=== PATIENT | male | born 1945 | race Caucasian/White ===

== ENCOUNTER 2018-09-01 13:34 | Emergency (ER) | payer OTHER ==
[2018-09-01 14:35] LABS: HEMATOCRIT 30.1 % (41.0-60); HEMOGLOBIN 9.8 gm/dL (12-16); MEAN CELL VOLUME 74.6 fl (80-99); MEAN CORPUSCULAR HEMOGLOBIN 24.3 pg (27.0-31.0); MEAN CORPUSCULAR HGB CONC 32.5 pg (28.0-36.0); MEAN PLATELET VOLUME 8.9 fl; PLATELET COUNT 204 Th/cmm (150-400); RED BLOOD COUNT 4.03 Mil/cmm (3.80-5.80); RED CELL DISTRIBUTION WIDTH 22.7 % (11.5-20.0); WHITE BLOOD COUNT 4.7 Th/cmm (4.8-10.8)
[2018-09-01 14:42] LABS: INR 1.15 (0.5-1.4); PROTHROMBIN TIME (TEST) 11.9 SECONDS (9.5-11.5)
[2018-09-01 14:46] LABS: ALB/GLOB RATIO 1.2 (1.0-1.8); ALKALINE PHOSPHATASE 58 U/L (34-104); ANION GAP 11.4 (7.0-16.0); BUN - UREA NITROGEN 34 mg/dL (7-25); CALCIUM SERUM 8.5 mg/dL (8.6-10.3); CARBON DIOXIDE 21.4 mEq/L (21.0-31.0); CHLORIDE 107 mEq/L (98-107); CHOLESTEROL 111 mg/dL (<200); CREATININE - SERUM 1.2 mg/dL (0.7-1.3); CREATININE KINASE 46 U/L (30-223); GLUCOSE 124 mg/dL (70-105); HDL -HIGH DENSITY LIPOPROTEIN 26 mg/dL (23-92); POTASSIUM SERUM 3.8 mEq/L (3.5-5.1); SGOT 14 U/L (13-39); SGPT/ALT 16 U/L (7-52); SODIUM SERUM 136 mEq/L (136-145); TOTAL PROTEIN,SERUM 5.5 gm/dL (6.0-8.3); TRIGLYCERIDES 59 mg/dL (<150)
[2018-09-01 14:55] LABS: DDIMER QUANT 2400 ng/mL (100-400)
[2018-09-01 15:12] LABS: ANISOCYTOSIS 1+; BAND NEUTROPHILE 0 % (0-10); BASOPHIL 0 % (0-3); EOSINOPHIL 4 % (0-5); LYMPHOCYTE 20 % (20-50); MONOCYTE 5 % (2-10); NEUTROPHILS 71 % (40-80)
[2018-09-01] MEDS ORDERED: IOHEXOL 350mgI/mL 150mL IV ONE (16:38)
[2018-09-01 17:12] LABS: URINE SOURCE MIDSTREAM
--- NOTE | 2018-09-01 17:13 | ED Physician Chart ---
ED Chief Complaint/HPI - Patient Information Date Seen:: 09/01/18 Time Seen:: 14:00 Chief Complaint:: Dyspnea History of Present Illness:: onset x 3 days of dyspnea, cough, MARIE, PND, and orthopnea; pt denies trauma, H/ As, S/T, neck pain, C/P, hemoptysis, Abd. Pain, A/N/V/D/C, fever, chills, or urinary s/s Allergies:: Allergies Allergy/AdvReac Type Severity Reaction Status Date / Time No Known Allergies Allergy Verified 09/01/18 14:03 Vitals:: Vital Signs - 8 hr 09/01/18 09/01/18 14:03 15:29 Temp 98.8 F 97.2 F HR 81 80 RR 20 15 BP 132/65 129/85 O2 Sat % 95 Historian:: Patient, Family Member Review:: Nurse's Note Reviewed, Old Chart Reviewed ED Review of Systems - Review of Systems General/Constitutional: No fever, No chills, No weight loss, No weakness, No diaphoresis, No edema, No loss of appetite Skin: No skin lesions, No rash, No bruising Head: No headache, No light-headedness Eyes: No loss of vision, No pain, No diplopia ENT: No earache, No nasal drainage, No sore throat, No tinnitus Neck: No neck pain, No swelling, No thyromegaly, No stiffness, No mass noted Cardio Vascular: No chest pain, No palpitations, PND, orthopnea, edema Pulmonary: SOB, Cough, No sputum, No wheezing GI: No nausea, No vomiting, No diarrhea, No pain, No melena, No hematochezia, No constipation, No hematemesis G/U: No dysuria, No frequency, No hematuria, No nacturia Musculoskeletal: No bone or joint pain, No back pain, No muscle pain Endocrine: No polyuria, No polydipsia Psychiatric: No prior psych history, No depression, No anxiety, No suicidal ideation, No homicidal ideation, No auditory hallucination, No visual hallucination Hematopoietic: No bruising, No lymphadenopathy Allergic/Immuno: No urticaria, No angioedema Neurological: No syncope, No focal symptoms, No weakness, No paresthesia, No headache, No seizure, No dizziness, No confusion, No vertigo ED Past Medical History - Past Medical History Obtainable: Yes Past Medical History: HTN, CAD, CHF, Asthma/COPD, Dyslipidemia Family History: HTN Social History: Smoker, Alcohol, No Drug Use, Surgical History: Pacemaker Psychiatricy History: None Medication: Reviewed Family Medical History - Family Member Mother Age: 83 Ethnicity: Living Status: Hx Family Hypertension: Yes Hx Family Diabetes: Yes Other Medical History: PNA ED Physical Exam - Physical Examination General/Constitutional: Awake, Well-developed, well-nourished, Alert, No distress, GCS 15, Non-toxic appearing, Ambulatory Head: Atraumatic Eyes: Lids, conjuctiva normal, PERRL, EOMI Skin: Nl inspection, No rash, No skin lesions, No ecchymosis, Well hydrated, No lymphadenopathy ENMT: External ears, nose nl, TM canals nl, Nasal exam nl, Lips, teeth, gums nl , Oropharynx nl, Tonsils nl Neck: Nontender, Full ROM w/o pain, No JVD, No nuchal rigidity, No bruit, No mass, No stridor Respiratory: Nl effort/Exclusion Other Respiratory comments:: Lungs: + Rales and Rhonchi Cardio Vascular: RRR, No murmur, gallop, rubs, NL S1 S2, Carotid/Femoral/Distal pulses equal bilaterally GI: No tenderness/rebounding/guarding, No organomegaly, No hernia, Normal BS's, Nondistended, No mass/bruits, No McBurney tenderness, Rectum exam nl : No CVA tenderness Extremities: No tenderness or effusion, Full ROM, normal strength in all extremities, Normal digits & nails Other Extremities comments:: 2+ PTE Neuro/Psych: Alert/oriented, DTR's symmetric, Normal sensory exam, Normal motor strength, Judgement/insight normal, Mood normal, Normal gait, No focal deficits Misc: Normal back, No paraspinal tenderness ED Labs/Radiology/EKG Results - Lab Results Results: Laboratory Tests 09/01/18 09/01/18 09/01/18 14:20 14:20 14:20 WBC 4.7 L RBC 4.03 Hgb 9.8 L Hct 30.1 L MCV 74.6 L MCH 24.3 L MCHC Differential 32.5 RDW 22.7 H Plt Count 204 MPV 8.9 Add Manual Diff YES Band Neutrophils % 0 Neutrophils (Manual) 71 Lymphocytes 20 Monocytes 5 Eosinophils 4 Basophils 0 Anisocytosis 1+ Microcytosis 2+ PT INR PTT (Actin FS) D-Dimer 2400 H Sodium 136 Potassium 3.8 Chloride 107 Carbon Dioxide 21.4 Anion Gap 11.4 BUN 34 H Creatinine 1.2 Est GFR ( Amer) TNP Est GFR (Non-Af Amer) TNP BUN/Creatinine Ratio 28.3 Glucose 124 H Whole Bld Lactic Acid Calcium 8.5 L Total Bilirubin 1.0 AST 14 ALT 16 Alkaline Phosphatase 58 Creatine Kinase 46 Troponin I B-Natriuretic Peptide 2380.0 H Total Protein 5.5 L Albumin 3.0 L Globulin 2.5 Albumin/Globulin Ratio 1.2 Triglycerides 59 Cholesterol 111 LDL Cholesterol Direct 78 HDL Cholesterol 26 09/01/18 09/01/18 09/01/18 14:20 14:20 14:20 WBC RBC Hgb Hct MCV MCH MCHC Differential RDW Plt Count MPV Add Manual Diff Band Neutrophils % Neutrophils (Manual) Lymphocytes Monocytes Eosinophils Basophils Anisocytosis Microcytosis PT 11.9 H INR 1.15 PTT (Actin FS) 27.9 D-Dimer Sodium Potassium Chloride Carbon Dioxide Anion Gap BUN Creatinine Est GFR ( Amer) Est GFR (Non-Af Amer) BUN/Creatinine Ratio Glucose Whole Bld Lactic Acid 1.87 Calcium Total Bilirubin AST ALT Alkaline Phosphatase Creatine Kinase Troponin I 0.03 B-Natriuretic Peptide Total Protein Albumin Globulin Albumin/Globulin Ratio Triglycerides Cholesterol LDL Cholesterol Direct HDL Cholesterol Comments:: Reviewed - Radiology Results Comments:: CXR: + CM; CHF; + Infiltrate; CTA Chest: CM; no PE; + PNA/Effusions - EKG Interpretations EKG Time:: 13:55 Rate & Rhythm: 80; Pacemaker Rhythm Comments:: non-specific st-t changes ED Septic Shock - . Is Septic Shock (SBP<90, OR Lactate>4 mmol\L) present?: No - <6hrs of presentation: Vital Signs: Vital Signs - 8 hr 09/01/18 09/01/18 14:03 15:29 Temp 98.8 F 97.2 F HR 81 80 RR 20 15 BP 132/65 129/85 O2 Sat % 95 ED Reassessment (Disposition) - Reassessment Reassessment Condition:: Improved - Diagnosis Diagnosis:: Dyspnea; CHF; Elevated D-Dimer; Elevated BNP; Anemia; Leukopenia; Pneumonia; Pleural Effusions; Sepsis - Aftercare/Follow up Instructions Aftercare/Follow-Up Instructions:: Counseled pt regarding lab results/diagnosis & need follow up, Counseled pt & family regarding lab results/diagnosis & need follow up - Patient Disposition Discharge/Transfer:: Acute Care (other hosp) Accepting Physician:: Dr. Javier Time Called:: 1600 Time Responded:: 16:00 Admitted to:: Telemetry Spoke to:: Dr. Javier Admitting Medical Physician:: Dr. Javier Condition at Disposition:: Stable, Improved (pt to be transferred via [facility] to [facility] as a direct Admission under Dr. Javier)
[2018-09-01 17:14] LABS: URINE BILIRUBIN SMALL (NEGATIVE); URINE BLOOD NEGATIVE (NEGATIVE); URINE GLUCOSE (UA) NEGATIVE (NEGATIVE); URINE KETONE NEGATIVE (NEGATIVE); URINE LEUKOCYTE ESTERASE NEGATIVE (NEGATIVE); URINE NITRATE NEGATIVE (NEGATIVE); URINE PROTEIN 100 mg/dL (NEGATIVE)
[2018-09-01 17:32] LABS: URINE CLARITY HAZY (CLEAR); URINE COLOR YELLOW; URINE MICROSCOPIC INDICATED? YES
[2018-09-01 17:33] LABS: URINE RBC NONE SEEN /hpf (0-5); URINE WBC 0-2 /hpf (0-5)
[2018-09-01 17:38] LABS: URINE BACTERIA FEW /hpf (NONE SEEN); URINE EPITHELIAL CELLS NONE SEEN /lpf (FEW)
[2018-09-01 17:39] LABS: URINE YEAST FEW /hpf (NONE SEEN)
[2018-09-01] MEDS ORDERED: Levofloxacin 500mg/100mL 500 MG/100 ML BAG IV ONE ×2 (18:05→18:31)
--- NOTE | 2018-09-02 08:23 | Diagnostic Imaging Report ---
CT angiogram of the chest with intravenous contrast (CTA) HISTORY: Shortness of breath Total DLP equals 257 CTDI equals 6.4 Following administration of intravenous contrast, axial sections were obtained from a level above the clavicles down to level below the diaphragm. There is marked cardiomegaly. There is normal opacification the main, right, and left pulmonary arteries. No intraluminal filling defects are seen. Specifically, no evidence of pulmonary embolism. Normal-sized lymph nodes are seen within the mediastinum. There is marked cardiomegaly. Generalized dilatation of the thoracic aorta. There are bilateral pleural effusions (right greater the left). Bilateral lower lobe pulmonary infiltrates are seen. The findings may be associated with congestive heart failure. Pneumonia cannot be excluded. Clinical correlation is needed. Limited sections below the diaphragm demonstrate suggestion of cholelithiasis. There is a markedly dilated predominantly debris and fluid-filled stomach. IMPRESSION: 1. No definite evidence of pulmonary embolism 2. Marked cardiomegaly 3. Bilateral pleural effusions along with bilateral lower lobe pulmonary infiltrates. The combination may be associated with changes of congestive heart failure. Pneumonia cannot be excluded. Clinical correlation is needed. 4. Suggestion of cholelithiasis. An ultrasound exam would provide for further assessment and evaluation
--- NOTE | 2018-09-02 08:30 | Diagnostic Imaging Report ---
Portable chest x-ray HISTORY: Pain There is marked cardiomegaly. Cardiac electrode lead wires project over the right atrium and right ventricle. Density is seen in the left lower hemithorax with obscuration the left hemidiaphragm. Findings may be associated with a pleural effusion. Underlying pneumonia and/or atelectasis cannot be excluded. Evidence of a small right pleural effusion is also seen. IMPRESSION: 1. Cardiomegaly 2. Density left lower hemithorax that may be associated with pleural fluid. Underlying pneumonia and/or atelectasis cannot be excluded. 3. Small right pleural effusion
== END 2018-09-01 21:05 | disposition short-term general hospital (02) ==
LOC: ER 13:34
DX: A41.9 Sepsis, unspecified organism (principal); I11.0 Hypertensive heart disease with heart failure; I50.9 Heart failure, unspecified; J18.9 Pneumonia, unspecified organism; D72.819 Decreased white blood cell count, unspecified; J90 Pleural effusion, not elsewhere classified; D64.9 Anemia, unspecified; R79.89 Other specified abnormal findings of blood chemistry; I25.10 Atherosclerotic heart disease of native coronary artery without angina pectoris; J44.9 Chronic obstructive pulmonary disease, unspecified; E78.5 Hyperlipidemia, unspecified; F17.200 Nicotine dependence, unspecified, uncomplicated; Z95.1 Presence of aortocoronary bypass graft
CPT/HCPCS: 99285; 96365; 96375; 94760; 93005; 71045; 71275; 84484; 83880; 36415; 85379; 83605; 85007; 85025; 85610; 85730; 81001; 82550; 80053; 80061; 87040 ×2; J1940; J1956